=== PATIENT | male | born 2000 | race Caucasian/White ===

== ENCOUNTER 2022-08-07 02:22 | Inpatient (IN) | payer OTHER ==
[2022-08-07 02:44] VITALS: BMI 22.8
[2022-08-07] MEDS ORDERED: ACETAMINOPHEN 1000 MG/100 ML BAG IVPB ONE (03:53)
[2022-08-07] MEDS ORDERED: ONDANSETRON 4 MG/2 ML VIAL IVPUSH ONE ×2 (03:53→08:22)
[2022-08-07] MEDS ORDERED: SODIUM CHLORIDE 0.9% 500 ML INFUS.BAG IV ONE (03:54)
[2022-08-07] MEDS ORDERED: ACETAMINOPHEN INJECTION 100 ML IVPB ONE (04:06)
[2022-08-07] MEDS ORDERED: ONDANSETRON 4 MG/2 ML VIAL ONE ×2 (04:06→08:24)
[2022-08-07 04:31] LABS: BASO % 0.1 % (0-2.0); HEMATOCRIT 41.4 % (35.4-49); HEMOGLOBIN 14.5 GM/dL (11.7-16.9); LYMPH % 3.1 % (8-40); MCH 30.2 pg (25.7-33.7); MEAN CELL VOLUME 86.3 fl (80-96); MEAN PLT VOLUME 7.8 fl (7.5-11.1); MONO % 9.5 % (3.8-10.2); NEUT % 87.3 % (42.8-82.8); PLATELET COUNT 194 10^3/uL (134-434); RDW 12.5 % (11.9-15.9); WHITE BLOOD COUNT 12.5 K/mm3 (4.0-10.0)
[2022-08-07 04:43] LABS: POTASSIUM 3.6 mmol/L (3.5-5.1)
[2022-08-07 04:45] LABS: BLOOD UREA NITROGEN 15.8 mg/dL (7-18); CALCIUM 9.3 mg/dL (8.5-10.1)
[2022-08-07 04:46] LABS: ALBUMIN 4.2 g/dl (3.4-5.0)
[2022-08-07 04:49] LABS: CREATININE 1.2 mg/dL (0.55-1.3)
[2022-08-07] MEDS ORDERED: LIDOCAINE HCL 1%, 10 MG/ML (50 mL VIAL) SQ ONE (06:12)
[2022-08-07] MEDS ORDERED: LIDOCAINE HCL 1%, 10 MG/ML (10ML VIAL) MDV ONE (06:14)
[2022-08-07] MEDS ORDERED: VANCOMYCIN 1 GM in D5W (PRE-DOCKED) 1,000 MG/250 ML (RESTRICTED TO ID ONLY IVPB ONE (07:53)
[2022-08-07] MEDS ORDERED: CEFTRIAXONE 2 GM in DEXTROSE 5%-WATER - 100 ML IVPB ONE (07:53)
[2022-08-07] MEDS ORDERED: VANCOMYCIN/WATER FOR INJ (PEG) 1,000 MG/200 ML BAG IVPB ONE (07:56)
[2022-08-07] MEDS ORDERED: CEFTRIAXONE 2 GM/100 ML BAG IVPB ONE (07:57)
[2022-08-07] MEDS ORDERED: ACYCLOVIR INJECTION 700 MG in DEXTROSE 5%-WATER - 100 ML IVPB ONE (08:24)
[2022-08-07] MEDS ORDERED: ONDANSETRON 4 MG/2 ML VIAL IVPUSH PRN (11:08)
[2022-08-07] MEDS ORDERED: ACETAMINOPHEN 325 MG TABLET (FP) ONE (11:58)
[2022-08-07] MEDS: D5-1/2NS+20 MEQ KCL - 20 MEQ/1,000 ML INFUS.BAG IV SCH (12:40)
[2022-08-07] MEDS: ACETAMINOPHEN 325 MG TABLET (FP) PO PRN (12:41)
[2022-08-07] MEDS ORDERED: AMPICILLIN SODIUM 2 GM VIAL ONE (13:54)
[2022-08-07] MEDS: AMPICILLIN - 2 GM in SODIUM CHLORIDE 100 ML IVPB SCH ×3 (14:09→22:51)
[2022-08-07 14:36] LABS: EPI CELLS 3 /uL (0-25.1); HYALINE CASTS 0 /uL (0-3.1); PH,URINE 5.5 (5.0-8.0); URINE APPEARANCE CLEAR; URINE BACTERIA 7 /uL (0-1359); URINE BILIRUBIN NEGATIVE (NEGATIVE); URINE COLOR YELLOW; URINE GLUCOSE (UA) NEGATIVE (NEGATIVE); URINE KETONE NEGATIVE (NEGATIVE); URINE LEUK ESTERASE NEGATIVE (NEGATIVE); URINE NITRITE NEGATIVE (NEGATIVE); URINE PROTEIN 1+ (NEGATIVE); URINE RBC 9 /uL (0-23.9); URINE UROBILINOGEN 0.2 mg/dL (0.2-1.0); URINE WBC 4 /uL (0-25.8)
[2022-08-07] MEDS: ACYCLOVIR INJECTION 700 MG in DEXTROSE 5%-WATER - 100 ML IVPB SCH (20:18)
[2022-08-07] MEDS ORDERED: ACETAMINOPHEN 1000 MG/100 ML BAG IVPB PRN (20:59)
[2022-08-07] MEDS: CEFTRIAXONE 2 GM in DEXTROSE 5%-WATER 100 ML IVPB SCH (22:52)
[2022-08-07] MEDS: VANCOMYCIN/WATER 1250 MG 1,250 MG/250 ML BAG IVPB SCH (22:53)
[2022-08-08] MEDS: AMPICILLIN - 2 GM in SODIUM CHLORIDE 100 ML IVPB SCH ×6 (02:56→22:08)
[2022-08-08] MEDS: ACYCLOVIR INJECTION 700 MG in DEXTROSE 5%-WATER - 100 ML IVPB SCH ×2 (02:58→09:44)
[2022-08-08 09:02] LABS: BASO % 0.3 % (0-2.0); EOS % 0.2 % (0-4.5); HEMATOCRIT 40.3 % (35.4-49); HEMOGLOBIN 13.7 GM/dL (11.7-16.9); LYMPH % 13.1 % (8-40); MCH 29.9 pg (25.7-33.7); MEAN PLT VOLUME 8.1 fl (7.5-11.1); MONO % 12.7 % (3.8-10.2); NEUT % 73.7 % (42.8-82.8); PLATELET COUNT 190 10^3/uL (134-434); RBC 4.58 M/mm3 (4.00-5.60); RDW 12.5 % (11.9-15.9); WHITE BLOOD COUNT 8.2 K/mm3 (4.0-10.0)
[2022-08-08 09:17] LABS: CALCIUM 8.9 mg/dL (8.5-10.1)
[2022-08-08 09:18] LABS: ALBUMIN 3.5 g/dl (3.4-5.0); BLOOD UREA NITROGEN 11.1 mg/dL (7-18)
[2022-08-08 09:21] LABS: CREATININE 0.9 mg/dL (0.55-1.3)
[2022-08-08 09:23] LABS: BILIRUBIN,TOTAL 0.4 mg/dL (0.2-1); TOT PROT 6.2 g/dl (6.4-8.2)
[2022-08-08] MEDS: CEFTRIAXONE 2 GM in DEXTROSE 5%-WATER 100 ML IVPB SCH ×2 (09:44→22:08)
[2022-08-08] MEDS: VANCOMYCIN/WATER 1250 MG 1,250 MG/250 ML BAG IVPB SCH (09:44)
[2022-08-08] MEDS: D5-1/2NS+20 MEQ KCL - 20 MEQ/1,000 ML INFUS.BAG IV SCH ×2 (09:45→13:08)
[2022-08-08] MEDS: SCOPOLAMINE HYDROBROMIDE 1 PATCH PATCH.TD72 TD SCH (13:09)
[2022-08-08 14:52] LABS: INR 1.3 (0.83-1.09)
[2022-08-08 15:18] LABS: HIV INTERPRETATION NEGATIVE (NEGATIVE)
[2022-08-08 17:30] LABS: BF GLUCOSE (CSF ONLY) 71 mg/dL (40-70)
[2022-08-08 17:49] LABS: CSF APPEARANCE CLEAR (CLEAR); CSF COLOR COLORLESS (COLORLESS); CSF WBC 0 mm3 (0-5)
[2022-08-09] MEDS: ACETAMINOPHEN 325 MG TABLET (FP) PO PRN ×2 (03:53→09:24)
[2022-08-09 07:43] LABS: BASO % 0.5 % (0-2.0); EOS % 0.6 % (0-4.5); HEMATOCRIT 38.9 % (35.4-49); HEMOGLOBIN 12.9 GM/dL (11.7-16.9); LYMPH % 28.6 % (8-40); MCH 29.2 pg (25.7-33.7); MEAN CELL VOLUME 88.5 fl (80-96); MONO % 13.7 % (3.8-10.2); NEUT % 56.6 % (42.8-82.8); PLATELET COUNT 183 10^3/uL (134-434); RBC 4.39 M/mm3 (4.00-5.60); WHITE BLOOD COUNT 4.6 K/mm3 (4.0-10.0)
[2022-08-09 08:16] LABS: POTASSIUM 3.9 mmol/L (3.5-5.1)
[2022-08-09 08:23] LABS: BLOOD UREA NITROGEN 8.8 mg/dL (7-18)
[2022-08-09 08:24] LABS: CALCIUM 8.7 mg/dL (8.5-10.1)
[2022-08-09 08:25] LABS: ALBUMIN 3.3 g/dl (3.4-5.0)
[2022-08-09 08:28] LABS: CREATININE 0.8 mg/dL (0.55-1.3)
[2022-08-09 08:30] LABS: BILIRUBIN,TOTAL 0.4 mg/dL (0.2-1)
[2022-08-09] MEDS: CEFTRIAXONE 2 GM in DEXTROSE 5%-WATER 100 ML IVPB SCH (09:23)
[2022-08-09] MEDS: ACETAMINOPHEN/CAFFEINE/BUTALBITAL 1 TAB PO SCH ×4 (11:54→23:05)
[2022-08-09] MEDS: CYCLOBENZAPRINE HCL 5 MG TABLET PO SCH ×3 (11:54→21:17)
[2022-08-09] MEDS: TOPIRAMATE 25 MG TABLET PO SCH ×2 (11:54→21:24)
[2022-08-09] MEDS: SODIUM CHLORIDE 1,000 ML IV SCH (15:08)
[2022-08-10] MEDS: SODIUM CHLORIDE 1,000 ML IV SCH ×2 (01:39→16:19)
[2022-08-10] MEDS: ACETAMINOPHEN/CAFFEINE/BUTALBITAL 1 TAB PO SCH ×6 (02:54→23:11)
[2022-08-10] MEDS: CYCLOBENZAPRINE HCL 5 MG TABLET PO SCH ×3 (06:42→22:44)
[2022-08-10 09:11] LABS: BASO % 0.5 % (0-2.0); HEMATOCRIT 38.5 % (35.4-49); HEMOGLOBIN 12.9 GM/dL (11.7-16.9); LYMPH % 31.9 % (8-40); MCH 29.7 pg (25.7-33.7); MCHC 33.5 g/dl (32.0-35.9); MEAN CELL VOLUME 88.6 fl (80-96); MEAN PLT VOLUME 8.4 fl (7.5-11.1); MONO % 10.8 % (3.8-10.2); NEUT % 55.8 % (42.8-82.8); PLATELET COUNT 219 10^3/uL (134-434); RBC 4.35 M/mm3 (4.00-5.60); RDW 12.5 % (11.9-15.9); WHITE BLOOD COUNT 4.5 K/mm3 (4.0-10.0)
[2022-08-10 09:19] LABS: POTASSIUM 4.1 mmol/L (3.5-5.1)
[2022-08-10 09:21] LABS: CALCIUM 9.1 mg/dL (8.5-10.1)
[2022-08-10 09:22] LABS: ALBUMIN 3.3 g/dl (3.4-5.0); BLOOD UREA NITROGEN 7.4 mg/dL (7-18); MAGNESIUM 2.1 mg/dL (1.8-2.4)
[2022-08-10 09:25] LABS: CREATININE 0.8 mg/dL (0.55-1.3)
[2022-08-10 09:26] LABS: BILIRUBIN,TOTAL 0.4 mg/dL (0.2-1)
[2022-08-10] MEDS: TOPIRAMATE 25 MG TABLET PO SCH ×2 (10:52→22:44)
[2022-08-11] MEDS: ACETAMINOPHEN/CAFFEINE/BUTALBITAL 1 TAB PO SCH ×3 (03:24→11:46)
[2022-08-11] MEDS: CYCLOBENZAPRINE HCL 5 MG TABLET PO SCH ×2 (06:20→13:40)
[2022-08-11] MEDS: TOPIRAMATE 25 MG TABLET PO SCH (10:02)
[2022-08-11 10:27] LABS: BASO % 0.5 % (0-2.0); EOS % 1.3 % (0-4.5); HEMATOCRIT 42.4 % (35.4-49); HEMOGLOBIN 13.8 GM/dL (11.7-16.9); LYMPH % 32.5 % (8-40); MCH 29.2 pg (25.7-33.7); MCHC 32.6 g/dl (32.0-35.9); MEAN CELL VOLUME 89.4 fl (80-96); MEAN PLT VOLUME 7.9 fl (7.5-11.1); MONO % 13.8 % (3.8-10.2); NEUT % 51.9 % (42.8-82.8); PLATELET COUNT 252 10^3/uL (134-434); RBC 4.74 M/mm3 (4.00-5.60); RDW 13.1 % (11.9-15.9); WHITE BLOOD COUNT 4.5 K/mm3 (4.0-10.0)
[2022-08-11 11:09] LABS: POTASSIUM 3.9 mmol/L (3.5-5.1)
[2022-08-11 11:22] LABS: CALCIUM 9.3 mg/dL (8.5-10.1)
[2022-08-11 11:23] LABS: ALBUMIN 3.8 g/dl (3.4-5.0); BLOOD UREA NITROGEN 9.7 mg/dL (7-18); MAGNESIUM 2.5 mg/dL (1.8-2.4)
[2022-08-11 11:27] LABS: BILIRUBIN,TOTAL 0.5 mg/dL (0.2-1); TOT PROT 6.7 g/dl (6.4-8.2)
[2022-08-11] MEDS: SCOPOLAMINE HYDROBROMIDE 1 PATCH PATCH.TD72 TD SCH (11:45)
[2022-08-11 14:44] VITALS: BP 126/58; PULSE 62; RESP 18; TEMP 97.4
[2022-08-12 16:08] LABS: MUMPS AB IGG CSF < 5.0 AU/mL (<=10.9)
== END 2022-08-11 14:46 | disposition home or self-care (01) | DRG 392 ==
LOC: JER 02:22 → JERBED 06:52 → OBSVTOIN 11:08 → J8W 16:44
PROVIDERS: ADMIT Internal Medicine; ATTEND Nurse Practitioner Family
PROC: 009U3ZZ Drainage of Spinal Canal, Percutaneous Approach (ICD-10-PCS; principal; 2022-08-07)
PROC: 3E0R3GC Introduction of Other Therapeutic Substance into Spinal Canal, Percutaneous Approach (ICD-10-PCS; 2022-08-10)
DX: K52.9 Noninfective gastroenteritis and colitis, unspecified (principal); R50.9 Fever, unspecified; R51.9 Headache, unspecified; M54.50 Low back pain, unspecified
CPT/HCPCS: 0241U-QW; 36415; 62272; 70450-TC; 70551-TC; 71045-TC-FY; 72131-TC; 74178-TC; 80053; 81003; 82945; 83690; 83735; 84157; 85025; 85610; 86140; 86617; 86694; 86735; 86765; 86787; 86788; 86789; 87040; 87045; 87046; 87070; 87086; 87205; 87209; 87324; 87389; 87449; 87529; 87651; 87899; 93005; 93010; 94010; 97116-GP; 97162-GP; 99285-25; G0378; Q9967